=== PATIENT | female | born 1950 | race Caucasian/White ===

== ENCOUNTER 2017-05-13 11:49 | Emergency (ER) | payer OTHER, SELFPAY ==
[2017-05-13 11:50] VITALS: BP 153/77; PULSE 87; RESP 18; TEMP 36.3; O2SAT 100; BMI 22.6
[2017-05-13 12:42] LABS: Absolute Lymphocyte Count 0.94 X10^3/ul (0.83-4.51); Absolute Neutrophil Count 6.1 X10^3/uL (2.0-7.7); Basophil# 0.01 X10^3/uL; Basophil% 0.1 % (0-1); Eosinophil# 0.06 X10^3/uL; Eosinophils% 0.8 % (0-5); Hematocrit 32.2 % (37-47); Hemoglobin 9.9 g/dl (12.0-15.0); Lymphocyte # 0.94 X10^3/ul (4.0); Lymphocyte % 12.5 % (19-41); Mean Corp Hgb Conc 30.7 g/gl (32-36); Mean Corpuscular Volume 87.7 fL (81-99); Mean Platelet Vol. 9.4 fl (6.2-12.0); Monocyte# 0.46 X10^3/uL; Monocyte% 6.1 % (0-10); Neutrophil # 6.06 X10^3/uL (2.7-7.7); Neutrophil % 80.5 % (47-70); Platelet Count 271 K/mm3 (150-450); RBC Distribution Width CV 14.7 % (11.6-14.6); Red Blood Count 3.67 M/mm3 (4.2-5.4); White Blood Count 7.5 K/mm3 (4.4-11.0)
[2017-05-13 12:43] LABS: POSITIVE COUNT NO; POSITIVE DIFFERENTIAL NO; POSITIVE MORPHOLOGY NO
[2017-05-13 12:56] LABS: Anion Gap 10 (5-15); BUN 26 mg/dL (7-18); BUN/Creat Ratio 15.3 RATIO (10-20); Calcium,Total 9.3 mg/dL (8.5-10.1); Chloride 102 mmol/L (98-107); EST Glomerular Filtration Rate 32 mL/min (>60); Est Glom Filt Rate - Afr Amer 39 mL/min (>60); Estimated Creatinine Clearance 24.01 ml/min; Glucose 108 mg/dL (70-110); Potassium 4.4 mmol/L (3.5-5.1); Sodium Level 135 mmol/L (136-145)
[2017-05-13 13:09] LABS: Pregnancy, Serum, hCG Quali. NEGATIVE Negative (0-9 Nonpreg)
--- NOTE | 2017-05-13 13:19 | CT_ITS ---
STUDY: CT ABDOMEN AND PELVIS WITHOUT CONTRAST REASON FOR EXAM: Female, 66 years old. One-week history of abdominal pain. History of prior colectomy and colostomy. RADIATION DOSAGE (If Supplied By Facility): CTDIvol = ( 6.21 ) mGy, DLP = ( 304.26 ) mGycm TECHNIQUE: Transaxial images were obtained from the dome of the diaphragm to the symphysis pubis without oral contrast, and without intravenous contrast. Sagittal and coronal images were reconstructed. Individualized dose optimization techniques were used for this CT. COMPARISON: None. FINDINGS: Patchy bibasilar infiltrates slightly worse on the right side. Calcified granuloma in the anterior lateral portion of the left lower lobe. The visualized portions of the heart are within normal limits. Normal liver. Multiple small layering gallstones. Normal spleen. There is diffuse atrophy of the pancreas. Normal bilateral adrenal glands. Contrast is seen within the kidneys in keeping with history of recent CT scan and IV contrast injection. Moderate degree of right hydronephrosis Soft tissue density seen in the root of the mesentery and in the mesenteric fat surrounding the superior mesenteric vessels. Adenopathy should be ruled out. Possible right para-aortic lymphadenopathy. Due to lack of oral contrast, the examination is limited. Normal visualized stomach. Normal small intestine. A colostomy is seen in the left mid abdomen. Fecal material is seen in the colon. Surgical clips are seen in the presacral region most likely secondary to prior surgery. There is diffuse atherosclerotic calcification of the abdominal aorta, without a demonstrated aneurysm. Normal inferior vena cava. Normal retroperitoneum. Normal urinary bladder. There is absence of the uterus consistent with a prior hysterectomy. Normal abdominal wall. There are degenerative changes of the visualized lumbar spine. This is worse at the L1-L2 level. CT/Abdomen/Pelvis without Cont IMPRESSION: Cholelithiasis. Findings suggestive of mesenteric lymphadenopathy as described and possible right retroperitoneal lymphadenopathy. Right hydronephrosis. Electronically Signed: Sean Miramontes MD at 14:06 EST Tel [phone], Service support ,
[2017-05-13] MEDS: Ondansetron 4 MG/2 ML Vial IV (13:46)
[2017-05-13] MEDS: 0.9% Normal Saline 1,000 ML 999 ML IV ×2 (13:46→15:15)
[2017-05-13] MEDS: Acetaminophen 500 MG Tablet 1000 MG PO (13:47)
[2017-05-13 13:50] VITALS: PULSE 92; RESP 16; O2SAT 97
[2017-05-13 14:31] LABS: Mucous, Urine 0 SEEN /hpf (<or=2+)
[2017-05-13 14:42] LABS: Color, Urine Yellow (Yellow); Glucose, Dipstick Normal (Normal); Ketone-Dipstick 5 mg/dl (Negative); Leukocyte Esterase-Dipstick 25 /ul (Negative); Nitrite-Dipstick Negative (Negative); Occult Blood-Urine 10 /ul (Negative); Protein-Dipstick 100 mg/dl (Negative); Specific Gravity, Urine 1.015 (1.002-1.030); Urine Bilirubin Dipstick Negative (Negative); Urine Clarity Sl. Cloudy (Clear); Urine Urobilinogen 1 mg/dl (Normal)
[2017-05-13 14:45] LABS: Bacteria 1+ /hpf (None Seen); Red Blood Cells-Urine 0-5 SEEN /hpf (0-5); Squamous Epithelial Cells - UA 0-5 SEEN /hpf (5-10); White Blood Cells 0-5 SEEN /hpf (0-5)
[2017-05-13 15:48] LABS: Lipase 127 U/L (73-393)
--- NOTE | 2017-05-13 15:53 | ED.VISSUMM ---
- ER Visit Summary Date of Service: 05/13/17 Chief Complaint: Abdominal pain and possible dehydration History of Present Illness: The patient is a 66 F patient presenting for evaluation secondary to abdominal pain and possible dehydration. Patient has been dealing with abdominal pain over the course the last 5 days. It has been associated with decreased appetite, but she has not had any sort of diarrhea. Abdominal pain is across her lower abdomen and has been associated with nausea and vomiting she denies any urinary symptoms. Patient apparently was seen at an outside facility and had a contrasted CT performed yesterday that was found to be negative and she was discharged with a course of Percocet and Zofran. Patient is continuing to have this discomfort and was seen by her primary care physician today who is concerned due to her history of underlying kidney disease that she was not adequately hydrated after receiving IV contrast and recommended she come to the emergency department. Review of systems otherwise negative. Physical Examination: Vital signs within normal limits. Well-nourished female no acute distress. Significant only dry mucous membranes are noted. Neck supple. Heart regular rate and rhythm lungs sounds clear. Abdomen was tender in the right lower quadrant, patient's ostomy in the left mid abdomen was pink without any evidence of change in color or tenderness to palpation. No diffuse peritonitis. Remainder physical otherwise unremarkable. Test Results: CBC demonstrates the patient's chronic kidney disease with a creatinine of 1.7 which is actually down from the patient's baseline slightly of 1.9. Lipase normal. Urinalysis negative. CBC unremarkable. CT abdomen and pelvis shows evidence of mesenteric adenitis, but no evidence of inflammatory process. It does demonstrate evidence of right-sided hydronephrosis without any evidence of kidney stone. Emergency Department Course and Treatment: Patient presented for evaluation due to possible dehydration and abdominal pain. Patient's workup as noted above did not show evidence of significant kidney injury. CT did not demonstrate any evidence of obstructive uropathy but did show some evidence of hydronephrosis. There is also some mesenteric adenitis noted. Patient was given 2 L normal saline repeat abdominal exam shows a benign abdomen that I believe to be nonsurgical. This point I believe patient can safely be discharged. I discussed the patient's PCP Dr. Ribera who is in agreement, patient was discharged with continued conservative management. Disposition: Discharge Impression: 1. Mesenteric adenitis 2. Chronic kidney disease This note was generated with [employer] software. It may contain incorrect words, spelling, and punctuation that were not noted in review of the chart prior to signing ED Disposition - Plan for ED Patient: Disposition: Home or Assisted Living Chief Complaint: Abd Pain Diagnosis: Mesenteric adenitis Instructions: ED Adenitis Mesenteric Referrals: Armando Motley MD [Primary Care Provider] - 3-5 Days
[2017-05-13 16:04] VITALS: BP 126/90; PULSE 80; RESP 18; O2SAT 100
== END 2017-05-13 16:08 | disposition home or self-care (01) ==
PROVIDERS: Emergency Provider Emergency Medicine; Family Provider Internal Medicine; PCP Internal Medicine
DX: I88.0 Nonspecific mesenteric lymphadenitis (principal); N18.9 Chronic kidney disease, unspecified; N13.30 Unspecified hydronephrosis; Z79.891 Long term (current) use of opiate analgesic; Z79.899 Other long term (current) drug therapy
CPT/HCPCS: 74176; 80048; 81001; 83690; 84703; 85025; 96361; 96374; 99284; J7030; P9612; J2405

== ENCOUNTER → 2017-05-19 15:48 | Outpatient (CLI) | payer OTHER, SELFPAY ==
--- NOTE | 2017-05-19 15:50 | CT_ITS ---
STUDY: CT BRAIN WITHOUT CONTRAST REASON FOR EXAM: Female, 66 years old. BLURRED VISION, STUMBLING, HX-CHRONIC KIDNEY DZ RADIATION DOSAGE (If Supplied By Facility): CTDIvol = ( 60.81 ) mGy, DLP = ( 884.64 ) mGycm TECHNIQUE: Transaxial CT imaging of the brain was performed without administration of intravenous contrast material. COMPARISON: None. FINDINGS: Normal soft tissue structures. Normal calvarium. There are calcifications around the carotid artery. These are noted in the cavernous carotid arteries. There is mild cerebral atrophy with widening of the extra-axial spaces and ventricular dilatation. There are areas of decreased attenuation within the white matter tracts of the supratentorial brain, consistent with microvascular disease changes. Normal basal ganglia and thalami. Normal brainstem. There is mild cerebellar atrophy. There is no intracranial hemorrhage. There are no findings of an acute ischemic infarction. Normal visualized paranasal sinuses. CT/Brain/Head without Contrast IMPRESSION: Chronic involutional changes of the brain. There are no acute findings. Electronically Signed: Imer Segundo MD at 16:30 EST , Service support ,
== END ==
PROVIDERS: Family Provider Internal Medicine; PCP Internal Medicine; Visit Provider Nurse Practitioner Acute Care
DX: R26.0 Ataxic gait (principal); H53.8 Other visual disturbances
CPT/HCPCS: 70450

== ENCOUNTER → 2017-07-20 07:19 | Outpatient (CLI) | payer OTHER, SELFPAY ==
--- NOTE | 2017-07-20 10:28 | NEURO_ITS ---
NCS and/or EMG Patient Report Ordering Doctor: Maureen Bartholomew DATE OF SERVICE: 07/20/17 Is a bilateral upper extremity nerve conduction study performed on this 66-year- old female with history of bilateral hand weakness. There is no history of neck injury or pain and no hand pain. Bilateral upper extremity sensory and motor nerve conduction study is performed demonstrating prolongation of the median motor distal latencies bilaterally worse on the left side. There is also bilateral loss of amplitude and conduction velocity again worse on the left side. The median sensory responses are intact. The ulnar motor and sensory and radial sensory responses are normal bilaterally. The median and ulnar F waves are symmetrically preserved. Impression: Abnormal nerve conduction study of the bilateral upper extremities consistent with carpal tunnel syndrome bilaterally, mild to moderate on the right side, moderate to severe on the left side.
== END ==
PROVIDERS: Family Provider Internal Medicine; PCP Internal Medicine; Visit Provider Nurse Practitioner Acute Care
DX: R20.0 Anesthesia of skin (principal); R20.2 Paresthesia of skin
CPT/HCPCS: 95911